=== PATIENT | male | born 2000 | race Caucasian/White ===

== ENCOUNTER 2024-05-30 11:51 | Emergency (ER) | payer BC ==
[2024-05-30 13:44] VITALS: BP 157/79; PULSE 66
[2024-05-30] MEDS: Take Home: Cyclobenzaprine 10 MG Tab, 4 Tab Pack PO ONE (14:33)
[2024-05-30] MEDS: predniSONE 20 MG Tab PO ONE (14:33)
== END 2024-05-30 14:38 | disposition home or self-care (01) ==
LOC: VM.ED 11:51
DX: M54.2 Cervicalgia (principal); W21.9XXA Striking against or struck by unspecified sports equipment, initial encounter; Y93.79 Activity, other specified sports and athletics
CPT/HCPCS: 70450; 72125; 99283; 99284; A9270-GY; J7512